=== PATIENT | female | born 1955 | race Caucasian/White ===

== ENCOUNTER 2022-06-07 08:09 | Outpatient (CLI) | payer MEDICARE, BC | END 2022-06-07 08:10 | disposition home or self-care (01) | LOC: BICMAMMO 08:09 | PROVIDERS: ATTEND Nurse Practitioner Family | DX: Z13.820 Encounter for screening for osteoporosis (principal); Z12.2 Encounter for screening for malignant neoplasm of respiratory organs; F17.210 Nicotine dependence, cigarettes, uncomplicated; M85.851 Other specified disorders of bone density and structure, right thigh; M85.852 Other specified disorders of bone density and structure, left thigh; Z78.0 Asymptomatic menopausal state | CPT/HCPCS: 71271; 77080 ==

== ENCOUNTER 2023-07-18 10:52 | Outpatient (CLI) | payer MEDICARE, BC | END 2023-07-18 10:53 | disposition home or self-care (01) | LOC: BICCT 10:52 | PROVIDERS: ATTEND Nurse Practitioner Family | DX: Z12.31 Encounter for screening mammogram for malignant neoplasm of breast (principal); Z12.2 Encounter for screening for malignant neoplasm of respiratory organs; F17.210 Nicotine dependence, cigarettes, uncomplicated | CPT/HCPCS: 71271; 77063; 77067 ==